=== PATIENT | male | born 1955 | race African-American/Black ===

== ENCOUNTER 2017-12-09 06:03 | Day surgery (SDC) | payer BC ==
[2017-12-05 14:14] VITALS: BMI 18.9
[2017-12-09] MEDS ORDERED: DEXAMETHASONE SOD PHOSPHATE/PF 10 MG/ML SDV ONE (06:48)
[2017-12-09] MEDS ORDERED: MIDAZOLAM HCL 2 MG/2 ML SINGLE DOSE VIAL ONE ×2 (06:48→07:23)
[2017-12-09] MEDS ORDERED: ROPIVACAINE HCL 0.5% 30ML VIAL ONE (06:48)
[2017-12-09] MEDS ORDERED: PROPOFOL 20 ML ONE (07:23)
[2017-12-09] MEDS ORDERED: EPINEPHrine 1:1,000 1 MG/1 ML - 30ML VIAL (INJECTION) ONE (07:25)
[2017-12-09] MEDS ORDERED: SUCCINYLCHOLINE CHLORIDE 200 MG/10 ML VIAL ONE (07:52)
[2017-12-09 09:07] VITALS: TEMP 97.7
[2017-12-09 09:55] VITALS: PULSE 60
[2017-12-09 10:11] VITALS: BP 134/71
[2017-12-09] MEDS ORDERED: ONDANSETRON 4 MG/2 ML VIAL IVPUSH PRN (10:18)
[2017-12-09] MEDS ORDERED: oxyCODONE HCL 5 MG TABLET PO PRN ×2 (10:18)
[2017-12-09] MEDS ORDERED: LACTATED RINGERS SOLUTION 1,000 ML IV SCH (10:30)
--- NOTE | 2017-12-11 23:34 | OP ---
DATE OF OPERATION: 12/09/2017 SURGEON: Sunny Zepeda MD STAVE MACHINE TENDER: DAVID Carrington PREOPERATIVE DIAGNOSES: 1. Left shoulder adhesive capsulitis. 2. Left shoulder impingement syndrome. 3. Left shoulder acromioclavicular joint disease. 4. Left shoulder superior and anterior posterior synovitis. POSTOPERATIVE DIAGNOSES: 1. Left shoulder adhesive capsulitis. 2. Left shoulder impingement syndrome. 3. Left shoulder acromioclavicular joint disease. 4. Left shoulder superior and anterior posterior synovitis. PROCEDURE: 1. Left shoulder arthroscopy with lysis and resection of adhesions, CPT code 01114. 2. Left shoulder arthroscopy with subacromial decompression. 3. Left shoulder arthroscopy with resection of clavicle-acromioclavicular joint. 4. Left shoulder arthroscopy with debridement, CPT code 45661, 80956, 23092. FINDINGS: 1. Evidence of previous arthroscopy. 2. Thickened scar tissue of the subacromial space. 3. No recurrence of full-thickness rotator cuff tear. 4. Anterior labral fraying. 5. Posterior labral fraying. 6. Thickened adhesions and scar tissue diffusely across the subacromial space, most pronounced anteriorly and laterally, but also posteriorly noted. 7. Minor recurrence of bone spur anterior acromion. 8. Pre-manipulation range of motion: Elevation to 110, external rotation 130, internal rotation 30. Postmanipulation range of motion: Elevation to 180, external rotation 80, internal rotation 80. PROCEDURE: Informed consent was obtained. The patient was taken to the operating room, where the upper extremity was prepped and draped in a sterile fashion. A scalene block was performed by Anesthesia. Manipulation under anesthesia was allowed for full range of motion. Using standard arthroscopic technique, a posterior incision portal was made, which allowed for introduction of a camera into the glenohumeral joint. Under direct visualization, an anterior incision and portal was made. Extensive and thickened synovitis was debrided. Fraying of the labrum was debrided and the superior labrum from anterior to posterior was identified with all loose areas debrided. Any labral tears were taken to a stable rim including identified SLAP lesions. All loose cartilage was debrided. The rotator cuff was identified and evaluated, as were the subacromial and bursal surfaces. The posterior incision portal was redirected to the subacromial space, where a lateral incision and portal was made. Excessive and thickened synovium was removed throughout the subacromial space including the anterior scar tissue, posterior bursa and lateral bursa. The type 2 acromion was converted to a flattened type 1, removing the anterior and lateral spurring. An accessory portal was made at the acromioclavicular joint, removing the inferior spur of the distal clavicle at the acromioclavicular joint allowing for a distal clavicle partial resection. Please note that 1cm of undersurface of clavicle was removed extending into the intra articular portion and through an accessory portal. The shoulder was once again reexamined and all impingement was removed. The shoulder was drained. A single suture was placed in all portals and a sterile dressing was placed. The patient was transferred to the recovery room without complication. ADDENDUM: Patient had previous arthroscopy and manipulation under anesthesia, allowing for expected debridement. Extensive thickened scar tissue was debrided after releasing the tissues with manipulation. It was found to be diffuse and full range of motion was acquired during manipulation. SUNNY ZEPEDA M.D. [id number]
--- NOTE | 2017-12-13 15:34 | PATH ---
Surgical Pathology Report Patient Name: EMILY WARREN [facility]. Rec. #: [id number] /Age/Gender: 1955 (Age: 62) / M Account: [id number] Location: [facility] AM[facility] Taken: 12/09/2017 Received: 12/09/2017 Reported: 12/13/2017 Physicians: Rober Galicia M.D. Specimen(s) Received LEFT SHOULDER SHAVINGS Clinical History Left shoulder adhesive capsulitis, impingement syndrome Final Diagnosis LEFT SHOULDER, ARTHROSCOPIC SHAVING: PORTIONS OF SYNOVIUM, CARTILAGE, SKELETAL MUSCLE AND BONE CONSISTENT WITH ARTHROSCOPIC SHAVINGS. Electronically Signed Gigi Villatoro M.D. Gross Description Received in formalin, labeled "left shoulder shavings," is a 4 x 4 x 1 cm. aggregate of rossi-yellow fibrocartilaginous fragments. A food service representative portion is submitted in one cassette. ALEXIA/12/12/2017 [place]/12/12/2017
== END 2017-12-09 10:40 | disposition home or self-care (01) ==
LOC: FASU 06:03
PROVIDERS: ATTEND Orthopaedic Surgery
PROC: 0RBK4ZZ Excision of Left Shoulder Joint, Percutaneous Endoscopic Approach (ICD-10-PCS; 2017-12-09)
PROC: 0RNK4ZZ Release Left Shoulder Joint, Percutaneous Endoscopic Approach (ICD-10-PCS; 2017-12-09)
PROC: 0PBB4ZZ Excision of Left Clavicle, Percutaneous Endoscopic Approach (ICD-10-PCS; principal; 2017-12-09 08:10)
DX: M75.02 Adhesive capsulitis of left shoulder (principal); M75.42 Impingement syndrome of left shoulder; M19.012 Primary osteoarthritis, left shoulder; M65.812 Other synovitis and tenosynovitis, left shoulder
CPT/HCPCS: 88304-TC